=== PATIENT | female | born 1995 | race Caucasian/White ===

== ENCOUNTER 2021-01-05 22:45 | Emergency (ER) | payer BC ==
[2021-01-06 00:17] LABS: HEMOGLOBIN 13.3 gm/dl (12.3-15.3); RED BLOOD COUNT 4.75 M/UL (4.00-5.10); WHITE BLOOD COUNT 11.1 K/UL (4.5-11.0)
[2021-01-06 00:36] LABS: BUN/CREATININE RATIO 12 (0-10)
[2021-01-06] MEDS ORDERED: PROTONIX40 MG PO (03:00)
== END 2021-01-06 03:18 | disposition home or self-care (01) ==
LOC: ER1 22:45
PROVIDERS: Physician Assistant
DX: R10.13 Epigastric pain (principal)
CPT/HCPCS: 80053; 81001; 83690; 84703; 85025; 87086; 99284